=== PATIENT | female | born 1960 | race Caucasian/White ===

== ENCOUNTER 2019-01-29 10:54 | Inpatient (IN) | payer MEDICARE, MEDICAID ==
[~2019-01-29] VITALS: Ht 162.6 cm; Wt 69.5 kg
[2019-01-29] MEDS ORDERED: ondansetron 4mg rapidly disintigrating tab PO ONE (12:30)
[2019-01-29] MEDS ORDERED: HYDROcodone/acetaminophen 10/325mg tab PO ONE (12:30)
[2019-01-29] MEDS ORDERED: CITA20TA27 PO (14:46)
[2019-01-29] MEDS ORDERED: FERR325T32 PO (14:46)
[2019-01-29] MEDS ORDERED: PALI234D IM (14:46)
[2019-01-29] MEDS ORDERED: GUAN2TAB PO (14:46)
[2019-01-29] MEDS ORDERED: FENO145T25 PO (14:46)
[2019-01-29] MEDS ORDERED: LAMO100T89 PO (14:48)
[2019-01-29] MEDS ORDERED: MONT10TA24 PO (14:48)
[2019-01-29] MEDS ORDERED: LORA10TA7 PO (14:48)
[2019-01-29] MEDS ORDERED: QUET200T30 PO (14:48)
[2019-01-29 14:49] LABS: BASOPHILS % (AUTO) 0.2 % (0-1); EOSINOPHILS % (AUTO) 0.2 % (0-6); HEMATOCRIT 40.4 % (35.0-45.0); HEMOGLOBIN 13.3 g/dl (12.0-16.0); LYMPHOCYTES % (AUTO) 7.6 % (21-51); MEAN CORPUSCULAR HEMOGLOBIN 28.7 PG (27.0-31.0); MEAN CORPUSCULAR HGB CONC 32.9 g/dL (33.0-36.5); MEAN CORPUSCULAR VOLUME 87.3 FL (78-98); MEAN PLATELET VOLUME 7.3 FL (7.4-10.4); MONOCYTES # (AUTO) 0.6 X10'3 (0-0.9); MONOCYTES % (AUTO) 4.8 % (2-12); NEUTROPHILS % (AUTO) 87.2 % (42-75); PLATELET COUNT 329 X10'3 (140-440); RED BLOOD COUNT 4.63 X10'6 (4.20-5.60); RED CELL DISTRIBUTION WIDTH 14.1 % (11.5-14.5); WHITE BLOOD COUNT 12.6 X10'3 (4.5-11.0)
[2019-01-29] MEDS ORDERED: DOCU-329 PO (14:50)
[2019-01-29] MEDS ORDERED: MULT-16 PO (14:50)
[2019-01-29] MEDS ORDERED: ACET-2119 PO (14:52)
[2019-01-29] MEDS ORDERED: IBUP-1984 PO (14:52)
[2019-01-29] MEDS ORDERED: KEN0.1O TP (14:54)
[2019-01-29 15:01] LABS: ALANINE AMINOTRANSFERASE 37 U/L (12-78); ALBUMIN 3.5 G/DL (3.4-5.0); ALKALINE PHOSPHATASE 100 IU/L (46-116); ANION GAP 8 (8-16); ASPARTATE AMINO TRANSFERASE 26 U/L (10-37); BILIRUBIN,TOTAL 0.3 MG/DL (0.1-1.0); BLOOD UREA NITROGEN 15 MG/DL (7-18); BUN/CREATININE RATIO 17.9 (6.6-38.0); CALCIUM 9.3 MG/DL (8.5-10.1); CHLORIDE 106 MMOL/L (99-107); CREATININE 0.84 MG/DL (0.40-0.90); GLUCOSE 117 MG/DL (70-104); POTASSIUM 4.4 MMOL/L (3.5-5.1); SODIUM 139 MMOL/L (135-145); TOTAL CARBON DIOXIDE 25.3 MMOL/L (24-32); eGFR 69 ML/MIN
[2019-01-29] MEDS ORDERED: CHOL10002 PO (15:02)
[2019-01-29 15:15] LABS: PARTIAL THROMBOPLASTIN TIME 25 SECONDS (22-32)
[2019-01-29 15:25] LABS: CLARITY,URINE SLIGHTLY CLOUDY (Clear); COLOR,URINE YELLOW (Yellow); GLUCOSE, URINE NEGATIVE (Neg); KETONES,URINE NEGATIVE (Neg); LEUKOCYTE ESTERASE ,URINE NEGATIVE (Neg); NITRITES, URINE NEGATIVE (Neg); OCCULT BLOOD,URINE NEGATIVE (Neg); PROTEIN,URINE NEGATIVE (Neg)
[2019-01-29 15:27] LABS: UA COLLECTION TYPE FOLEY CATH
[2019-01-29 15:30] LABS: MUCUS STRANDS FEW /LPF (Neg); SQUAMOUS EPITHELIAL CELL,UR FEW /LPF (FEW)
[2019-01-29] MEDS ORDERED: diphenhydrAMINE 50 mg/ml inj IV PRN (15:30)
[2019-01-29] MEDS ORDERED: magnesium 2GM in 50ml NS 50 ML IV PRN (15:30)
[2019-01-29] MEDS ORDERED: magnesium hydroxide 30ml (MOM) UD suspension PO PRN (15:30)
[2019-01-29] MEDS: K and/or MAG REPLACEMENT MC SCH (15:30)
[2019-01-29] MEDS ORDERED: magnesium 4gm in 100ml NS 100 ML IV PRN (15:30)
[2019-01-29] MEDS ORDERED: triamcinolone acet 0.1% cream 15gm TP PRN (15:30)
[2019-01-29] MEDS ORDERED: potassium Cl 20 mEq SR tablet PO PRN ×2 (15:30)
[2019-01-29] MEDS ORDERED: magnesium Cl slow-release 64mg tablet PO PRN (15:30)
[2019-01-29] MEDS ORDERED: acetaminophen 325mg tablet PO PRN ×2 (15:30)
[2019-01-29] MEDS ORDERED: mag hydrox/Alum hydrox/simeth 30ml oral suspension PO PRN (15:30)
[2019-01-29] MEDS ORDERED: diphenhydrAMINE 25mg capsule PO PRN (15:30)
[2019-01-29] MEDS ORDERED: HYDROcodone/acetaminophen 5mg/325mg tablet PO PRN (15:30)
[2019-01-29] MEDS ORDERED: ondansetron/PF 4mg/2ml inj IV PRN (15:30)
[2019-01-29] MEDS ORDERED: potassium CL 10mEq/100ml bag 100 ML IV PRN ×2 (15:30)
[2019-01-29] MEDS ORDERED: morphine 2 MG/ML inj. syringe IV PRN ×2 (15:30)
[2019-01-29] MEDS ORDERED: bisacodyl 10mg suppository rectal RC PRN (15:30)
[2019-01-29 15:31] LABS: BACTERIA,URINE FEW /HPF (Neg); HYALINE CASTS 0-3 /LPF (NEGATIVE); RBC,URINE 0-2 /HPF (0-2); WBC,URINE 0-4 /HPF (0-4)
[2019-01-29 15:34] LABS: AMORPHOUS PHOSPHATES 2+
--- NOTE | 2019-01-29 15:52 | NUR ---
Pt caregiver: Janette Burgos
--- NOTE | 2019-01-29 15:57 | NUR ---
RECEIVED REPORT FROM SENIOR CONTRACTS ADMINISTRATOR
[2019-01-29 16:00] VITALS: BP 135/80
[2019-01-29 16:07] LABS: HEMOGLOBIN A1C 5.6 % (4.5-6.2)
[2019-01-29] MEDS: normal saline 1000ml 1,000 ML IV SCH (16:28)
[2019-01-29 18:00] VITALS: BP 135/80
--- NOTE | 2019-01-29 18:09 | NUR ---
GAVE REPORT TO SHAUN CHATMAN
--- NOTE | 2019-01-29 18:10 | NUR ---
Patient in room [facility] 4009. I have received report from Deedee DUNN and had the opportunity to ask questions and assume patient care.
[2019-01-29] MEDS ORDERED: docusate sod 100mg capsule PO SCH (20:00)
[2019-01-29] MEDS: ferrous sulfate 325mg tablet PO SCH (20:06)
[2019-01-29] MEDS: vitamin D (cholecalciferol) 1,000 unit tablet PO SCH (20:08)
[2019-01-29] MEDS: lamoTRIgine 100mg tablet PO SCH (20:08)
[2019-01-29] MEDS: quetiapine 100mg tablet PO SCH (20:08)
[2019-01-29] MEDS: heparin, porcine 5000 units/ml vial SQ SCH (20:09)
[2019-01-29] MEDS: docusate sod 250mg capsule PO SCH (21:42)
[2019-01-29] MEDS: guanFACINE 1 mg tablet PO SCH (21:42)
[2019-01-29 22:00] VITALS: BP 99/57
[2019-01-30] VITALS (23 sets, daily range): BP systolic 89–135; BP diastolic 54–81
[2019-01-30] MEDS: normal saline 1000ml 1,000 ML IV SCH ×3 (02:34→21:28)
[2019-01-30] MEDS: HYDROcodone/acetaminophen 10/325mg tab PO PRN ×3 (02:45→22:13)
[2019-01-30 05:46] LABS: BASOPHILS % (AUTO) 0.4 % (0-1); EOSINOPHILS # (AUTO) 0.3 X10'3 (0-0.9); EOSINOPHILS % (AUTO) 5.3 % (0-6); HEMATOCRIT 35.8 % (35.0-45.0); HEMOGLOBIN 11.9 g/dl (12.0-16.0); LYMPHOCYTES # (AUTO) 1.7 X10'3 (1.1-4.8); LYMPHOCYTES % (AUTO) 30.3 % (21-51); MEAN CORPUSCULAR HEMOGLOBIN 29.2 PG (27.0-31.0); MEAN CORPUSCULAR HGB CONC 33.2 g/dL (33.0-36.5); MEAN CORPUSCULAR VOLUME 87.9 FL (78-98); MEAN PLATELET VOLUME 7.3 FL (7.4-10.4); MONOCYTES # (AUTO) 0.4 X10'3 (0-0.9); MONOCYTES % (AUTO) 7.8 % (2-12); NEUTROPHILS # (AUTO) 3.1 X10'3 (1.8-7.7); NEUTROPHILS % (AUTO) 56.2 % (42-75); PLATELET COUNT 291 X10'3 (140-440); RED BLOOD COUNT 4.07 X10'6 (4.20-5.60); RED CELL DISTRIBUTION WIDTH 13.9 % (11.5-14.5); WHITE BLOOD COUNT 5.5 X10'3 (4.5-11.0)
[2019-01-30 06:05] LABS: ALANINE AMINOTRANSFERASE 31 U/L (12-78); ALBUMIN 2.7 G/DL (3.4-5.0); ALBUMIN/GLOBULIN RATIO 0.9 (1.1-1.5); ALKALINE PHOSPHATASE 86 IU/L (46-116); ANION GAP 10 (8-16); ASPARTATE AMINO TRANSFERASE 21 U/L (10-37); BILIRUBIN,TOTAL 0.4 MG/DL (0.1-1.0); BLOOD UREA NITROGEN 11 MG/DL (7-18); BUN/CREATININE RATIO 14.7 (6.6-38.0); CALCIUM 8.6 MG/DL (8.5-10.1); CHLORIDE 111 MMOL/L (99-107); CHOL/HDL RATIO 4.1 (0.00-4.99); CHOLESTEROL 163 MG/DL (0-200); CREATININE 0.75 MG/DL (0.40-0.90); GLUCOSE 95 MG/DL (70-104); HDL CHOLESTEROL 40 MG/DL (35-60); MAGNESIUM 1.7 MG/DL (1.5-2.4); POTASSIUM 4.1 MMOL/L (3.5-5.1); SODIUM 144 MMOL/L (135-145); TOTAL CARBON DIOXIDE 23.4 MMOL/L (24-32); TOTAL PROTEIN 5.8 G/DL (6.4-8.2); TRIGLYCERIDES 103 MG/DL (20-135); eGFR 79 ML/MIN
[2019-01-30 06:17] LABS: LDL CHOLESTEROL 109 MG/DL (50-100)
--- NOTE | 2019-01-30 06:25 | NUR ---
Problems reprioritized. Patient report given, questions answered & plan of care reviewed with Caity DUNN.
[2019-01-30] MEDS: heparin, porcine 5000 units/ml vial SQ SCH ×2 (06:37→21:32)
[2019-01-30] MEDS: fenofibrate 145mg tablet PO SCH (06:38)
[2019-01-30] MEDS: multivitamins, therapeutics tablet PO SCH (06:38)
[2019-01-30] MEDS: montelukast 10mg tablet PO SCH (06:38)
[2019-01-30] MEDS: ferrous sulfate 325mg tablet PO SCH ×2 (06:39→21:32)
[2019-01-30] MEDS: docusate sod 250mg capsule PO SCH ×2 (06:39→21:31)
[2019-01-30] MEDS: loratadine 10mg tablet PO SCH (06:39)
[2019-01-30] MEDS: lamoTRIgine 100mg tablet PO SCH ×2 (06:39→21:32)
[2019-01-30] MEDS: citalopram 20mg tablet PO SCH (06:39)
[2019-01-30] MEDS: K and/or MAG REPLACEMENT MC SCH (06:40)
[2019-01-30] MEDS ORDERED: BUPIVAcaine/PF 2.5 mg/ml (0.25%) 30ml vial ONE (10:12)
[2019-01-30] MEDS ORDERED: ceFAZolin 1000mg inj ONE (10:12)
[2019-01-30] MEDS ORDERED: ringers solution, lacted 1,000 ML IV SCH (10:28)
[2019-01-30] MEDS ORDERED: meperidine/PF 25mg/ml syringe IV PRN ×3 (10:30)
[2019-01-30] MEDS ORDERED: morphine 4 MG/ML inj SYRINge IV PRN ×2 (10:30)
[2019-01-30] MEDS ORDERED: proCHLORperazine 10 MG/2 ml inj IV PRN (10:30)
[2019-01-30] MEDS ORDERED: ondansetron/PF 4mg/2ml inj IV PRN (10:30)
[2019-01-30] MEDS ORDERED: clindamycin 600mg/D5W 50ml 50 ML IV ONE (11:00)
[2019-01-30] MEDS ORDERED: ePHEDrine 50MG/ML INJ. ONE (11:22)
[2019-01-30] MEDS ORDERED: fentaNYL/PF 50MCG/1 ML 2ML syringe ONE (11:32)
[2019-01-30] MEDS ORDERED: MIDAZolam 5mg/5ml vial ONE (11:32)
--- NOTE | 2019-01-30 12:22 | NUR ---
Received from OR via BED, accompanied by Anesthesiologist DR MARQUEZ and report given by Anesthesiologist. PT DROWSY, LEFT HIP W/SHEELA DRSG COVERING 4X4 CDI, PT W/SAB, UNABLE TO MOVE BILAT LE'S, HOWEVER, STATES HAS FULL SENSATION TO TOUCH, NEGRON CATHETER TO GRAVITY DRAINAGE. Addendum: 01/30/19 at 1255 by Irlanda Pulido RN Amended: Links added.
--- NOTE | 2019-01-30 13:52 | NUR ---
Report called to receiving nurse. Transferred IN STABLE CONDTISION via BED, NO Belongings, RECEIVING RN AT BEDSIDE TO RECEIVE PT, BLL, CALL LIGHT GIVEN, SIDE RAILS UP X 2. Special Issues communicated to receiving nurse. YES. Addendum: 01/30/19 at 1405 by Irlanda Pulido RN Amended: Links added.
[2019-01-30] MEDS ORDERED: clindamycin 600mg/D5W 50ml 50 ML IV SCH (16:00)
[2019-01-30] MEDS: clindamycin 600mg/D5W 50ml 50 ML IV SCH (17:27)
[2019-01-30] MEDS: guanFACINE 1 mg tablet PO SCH (21:32)
[2019-01-30] MEDS: quetiapine 100mg tablet PO SCH (21:32)
[2019-01-30] MEDS: vitamin D (cholecalciferol) 1,000 unit tablet PO SCH (21:33)
[2019-01-31] MEDS: clindamycin 600mg/D5W 50ml 50 ML IV SCH ×2 (00:10→07:27)
[2019-01-31 04:21] VITALS: BP 99/51
[2019-01-31] MEDS: HYDROcodone/acetaminophen 10/325mg tab PO PRN ×4 (04:52→20:45)
[2019-01-31] MEDS: normal saline 1000ml 1,000 ML IV SCH (05:57)
[2019-01-31 06:00] VITALS: BP 103/61
--- NOTE | 2019-01-31 06:15 | NUR ---
Patient in room [facility]TH[facility] 4009. I have received report from ROM DUNN and had the opportunity to ask questions and assume patient care.
[2019-01-31 06:52] LABS: BASOPHILS % (AUTO) 0.3 % (0-1); EOSINOPHILS # (AUTO) 0.4 X10'3 (0-0.9); EOSINOPHILS % (AUTO) 6.5 % (0-6); HEMATOCRIT 33.6 % (35.0-45.0); HEMOGLOBIN 11.3 g/dl (12.0-16.0); LYMPHOCYTES # (AUTO) 1.2 X10'3 (1.1-4.8); LYMPHOCYTES % (AUTO) 19.9 % (21-51); MEAN CORPUSCULAR HEMOGLOBIN 29.6 PG (27.0-31.0); MEAN CORPUSCULAR HGB CONC 33.6 g/dL (33.0-36.5); MEAN CORPUSCULAR VOLUME 88.1 FL (78-98); MEAN PLATELET VOLUME 7.5 FL (7.4-10.4); MONOCYTES # (AUTO) 0.5 X10'3 (0-0.9); MONOCYTES % (AUTO) 7.7 % (2-12); NEUTROPHILS # (AUTO) 4.1 X10'3 (1.8-7.7); NEUTROPHILS % (AUTO) 65.6 % (42-75); PLATELET COUNT 276 X10'3 (140-440); RED BLOOD COUNT 3.81 X10'6 (4.20-5.60); RED CELL DISTRIBUTION WIDTH 14.3 % (11.5-14.5); WHITE BLOOD COUNT 6.2 X10'3 (4.5-11.0)
[2019-01-31 07:13] LABS: ALANINE AMINOTRANSFERASE 36 U/L (12-78); ALBUMIN 2.4 G/DL (3.4-5.0); ALBUMIN/GLOBULIN RATIO 0.8 (1.1-1.5); ALKALINE PHOSPHATASE 100 IU/L (46-116); ANION GAP 11 (8-16); ASPARTATE AMINO TRANSFERASE 32 U/L (10-37); BILIRUBIN,TOTAL 0.4 MG/DL (0.1-1.0); BLOOD UREA NITROGEN 7 MG/DL (7-18); BUN/CREATININE RATIO 10.8 (6.6-38.0); CALCIUM 8.4 MG/DL (8.5-10.1); CHLORIDE 110 MMOL/L (99-107); CREATININE 0.65 MG/DL (0.40-0.90); GLUCOSE 106 MG/DL (70-104); MAGNESIUM 1.6 MG/DL (1.5-2.4); PHOSPHORUS 2.7 MG/DL (2.3-4.5); POTASSIUM 3.8 MMOL/L (3.5-5.1); SODIUM 143 MMOL/L (135-145); TOTAL CARBON DIOXIDE 22.4 MMOL/L (24-32); TOTAL PROTEIN 5.6 G/DL (6.4-8.2); eGFR > 90 ML/MIN
[2019-01-31] MEDS: K and/or MAG REPLACEMENT MC SCH (07:21)
[2019-01-31] MEDS: multivitamins, therapeutics tablet PO SCH (07:25)
[2019-01-31] MEDS: heparin, porcine 5000 units/ml vial SQ SCH ×2 (07:25→20:46)
[2019-01-31] MEDS: citalopram 20mg tablet PO SCH (07:25)
[2019-01-31] MEDS: docusate sod 250mg capsule PO SCH ×2 (07:25→20:00)
[2019-01-31] MEDS: lamoTRIgine 100mg tablet PO SCH ×2 (07:25→20:41)
[2019-01-31] MEDS: montelukast 10mg tablet PO SCH (07:25)
[2019-01-31] MEDS: loratadine 10mg tablet PO SCH (07:25)
[2019-01-31] MEDS: ferrous sulfate 325mg tablet PO SCH ×2 (07:25→20:41)
[2019-01-31] MEDS: fenofibrate 145mg tablet PO SCH (07:26)
--- NOTE | 2019-01-31 09:34 | NUR ---
WHEN GETTING PATIENT BACK TO BED NOTICED THAT THE NEGRON CATHETER WAS NOT IN PLACE. CATHETER TIP WAS INTACT.
[2019-01-31 10:00] VITALS: BP 109/61
[2019-01-31 14:00] VITALS: BP 122/67
--- NOTE | 2019-01-31 15:38 | NUR ---
PAGER ID: [phone] MESSAGE: MEGAN [phone] RE: SUSANLAURI [id number] PT GETS INVEGA [id number] DUE ON MONDAY BUT HAS TO GET IN CORNING. CAN WE GIVE IT HERE TOMORROW?
[2019-01-31 18:00] VITALS: BP 120/60
--- NOTE | 2019-01-31 18:25 | NUR ---
Problems reprioritized. Patient report given, questions answered & plan of care reviewed with JIHAN DUNN.
--- NOTE | 2019-01-31 19:00 | NUR ---
Patient in room [facility]TH[facility] 4009. I have received report from Shade DUNN and had the opportunity to ask questions and assume patient care.
[2019-01-31] MEDS: quetiapine 100mg tablet PO SCH (20:42)
[2019-01-31] MEDS: guanFACINE 1 mg tablet PO SCH (20:43)
[2019-01-31] MEDS: vitamin D (cholecalciferol) 1,000 unit tablet PO SCH (20:43)
[2019-01-31 22:44] VITALS: BP 128/79
[2019-02-01] MEDS: HYDROcodone/acetaminophen 10/325mg tab PO PRN ×5 (03:27→20:15)
[2019-02-01 06:00] VITALS: BP 123/75
--- NOTE | 2019-02-01 06:20 | NUR ---
Patient in room [facility]TH[facility] 4009. I have received report fromJIHAN DUNN and had the opportunity to ask questions and assume patient care.
[2019-02-01 07:02] LABS: BASOPHILS % (AUTO) 0.5 % (0-1); EOSINOPHILS # (AUTO) 0.4 X10'3 (0-0.9); EOSINOPHILS % (AUTO) 4.9 % (0-6); HEMATOCRIT 36.8 % (35.0-45.0); HEMOGLOBIN 12.3 g/dl (12.0-16.0); LYMPHOCYTES # (AUTO) 1.8 X10'3 (1.1-4.8); LYMPHOCYTES % (AUTO) 24.1 % (21-51); MEAN CORPUSCULAR HEMOGLOBIN 29.2 PG (27.0-31.0); MEAN CORPUSCULAR HGB CONC 33.3 g/dL (33.0-36.5); MEAN CORPUSCULAR VOLUME 87.6 FL (78-98); MEAN PLATELET VOLUME 7.6 FL (7.4-10.4); MONOCYTES # (AUTO) 0.6 X10'3 (0-0.9); MONOCYTES % (AUTO) 8.2 % (2-12); NEUTROPHILS # (AUTO) 4.6 X10'3 (1.8-7.7); NEUTROPHILS % (AUTO) 62.3 % (42-75); PLATELET COUNT 277 X10'3 (140-440); RED CELL DISTRIBUTION WIDTH 13.9 % (11.5-14.5); WHITE BLOOD COUNT 7.4 X10'3 (4.5-11.0)
[2019-02-01 07:13] LABS: ALANINE AMINOTRANSFERASE 39 U/L (12-78); ALBUMIN 2.4 G/DL (3.4-5.0); ALBUMIN/GLOBULIN RATIO 0.6 (1.1-1.5); ALKALINE PHOSPHATASE 114 IU/L (46-116); ANION GAP 9 (8-16); ASPARTATE AMINO TRANSFERASE 30 U/L (10-37); BILIRUBIN,TOTAL 0.2 MG/DL (0.1-1.0); BLOOD UREA NITROGEN 9 MG/DL (7-18); BUN/CREATININE RATIO 13.8 (6.6-38.0); CALCIUM 8.9 MG/DL (8.5-10.1); CHLORIDE 110 MMOL/L (99-107); CREATININE 0.65 MG/DL (0.40-0.90); GLUCOSE 106 MG/DL (70-104); MAGNESIUM 1.9 MG/DL (1.5-2.4); PHOSPHORUS 2.3 MG/DL (2.3-4.5); POTASSIUM 4.1 MMOL/L (3.5-5.1); SODIUM 141 MMOL/L (135-145); TOTAL CARBON DIOXIDE 22.3 MMOL/L (24-32); TOTAL PROTEIN 6.1 G/DL (6.4-8.2); eGFR > 90 ML/MIN
[2019-02-01] MEDS: K and/or MAG REPLACEMENT MC SCH (08:00)
[2019-02-01] MEDS: montelukast 10mg tablet PO SCH (08:02)
[2019-02-01] MEDS: citalopram 20mg tablet PO SCH (08:02)
[2019-02-01] MEDS: docusate sod 250mg capsule PO SCH ×2 (08:02→20:12)
[2019-02-01] MEDS: fenofibrate 145mg tablet PO SCH (08:02)
[2019-02-01] MEDS: multivitamins, therapeutics tablet PO SCH (08:02)
[2019-02-01] MEDS: loratadine 10mg tablet PO SCH (08:02)
[2019-02-01] MEDS: lamoTRIgine 100mg tablet PO SCH ×2 (08:02→20:13)
[2019-02-01] MEDS: ferrous sulfate 325mg tablet PO SCH ×2 (08:02→20:12)
[2019-02-01] MEDS: heparin, porcine 5000 units/ml vial SQ SCH ×2 (08:03→20:13)
[2019-02-01] MEDS ORDERED: paliperidone palmitate inj 234 MG/1.5 ML SYRINGE IM SCH (09:00)
[2019-02-01 10:00] VITALS: BP 102/67
[2019-02-01 18:00] VITALS: BP 115/70
--- NOTE | 2019-02-01 18:20 | NUR ---
Problems reprioritized. Patient report given, questions answered & plan of care reviewed with JIHAN DUNN.
--- NOTE | 2019-02-01 19:00 | NUR ---
Patient in room [facility]TH[facility] 4009. I have received report from Fannie DUNN and had the opportunity to ask questions and assume patient care.
[2019-02-01] MEDS: guanFACINE 1 mg tablet PO SCH (20:14)
[2019-02-01] MEDS: quetiapine 100mg tablet PO SCH (20:14)
[2019-02-01] MEDS: vitamin D (cholecalciferol) 1,000 unit tablet PO SCH (20:15)
[2019-02-01 22:00] VITALS: BP 104/61
[2019-02-02] MEDS: HYDROcodone/acetaminophen 10/325mg tab PO PRN ×2 (05:09→09:43)
[2019-02-02 06:00] VITALS: BP 131/73
--- NOTE | 2019-02-02 06:20 | NUR ---
Patient in room [facility]TH[facility] 4009. I have received report from JIHAN DUNN and had the opportunity to ask questions and assume patient care.
[2019-02-02 07:01] LABS: BASOPHILS % (AUTO) 0.3 % (0-1); EOSINOPHILS # (AUTO) 0.3 X10'3 (0-0.9); EOSINOPHILS % (AUTO) 4.1 % (0-6); HEMATOCRIT 35.6 % (35.0-45.0); LYMPHOCYTES # (AUTO) 1.4 X10'3 (1.1-4.8); LYMPHOCYTES % (AUTO) 16.5 % (21-51); MEAN CORPUSCULAR HEMOGLOBIN 29.7 PG (27.0-31.0); MEAN CORPUSCULAR HGB CONC 33.9 g/dL (33.0-36.5); MEAN CORPUSCULAR VOLUME 87.8 FL (78-98); MEAN PLATELET VOLUME 7.4 FL (7.4-10.4); MONOCYTES # (AUTO) 0.7 X10'3 (0-0.9); NEUTROPHILS % (AUTO) 71.1 % (42-75); PLATELET COUNT 302 X10'3 (140-440); RED BLOOD COUNT 4.05 X10'6 (4.20-5.60); RED CELL DISTRIBUTION WIDTH 14.2 % (11.5-14.5); WHITE BLOOD COUNT 8.4 X10'3 (4.5-11.0)
[2019-02-02 07:09] LABS: ALANINE AMINOTRANSFERASE 55 U/L (12-78); ALBUMIN 2.5 G/DL (3.4-5.0); ALBUMIN/GLOBULIN RATIO 0.7 (1.1-1.5); ALKALINE PHOSPHATASE 152 IU/L (46-116); ANION GAP 9 (8-16); ASPARTATE AMINO TRANSFERASE 59 U/L (10-37); BILIRUBIN,TOTAL 0.4 MG/DL (0.1-1.0); BLOOD UREA NITROGEN 11 MG/DL (7-18); BUN/CREATININE RATIO 16.9 (6.6-38.0); CALCIUM 8.9 MG/DL (8.5-10.1); CHLORIDE 109 MMOL/L (99-107); CREATININE 0.65 MG/DL (0.40-0.90); GLUCOSE 112 MG/DL (70-104); MAGNESIUM 1.9 MG/DL (1.5-2.4); PHOSPHORUS 2.6 MG/DL (2.3-4.5); SODIUM 142 MMOL/L (135-145); TOTAL CARBON DIOXIDE 23.9 MMOL/L (24-32); TOTAL PROTEIN 6.2 G/DL (6.4-8.2); eGFR > 90 ML/MIN
[2019-02-02] MEDS: K and/or MAG REPLACEMENT MC SCH (07:49)
[2019-02-02] MEDS: docusate sod 250mg capsule PO SCH (07:51)
[2019-02-02] MEDS: loratadine 10mg tablet PO SCH (07:51)
[2019-02-02] MEDS: multivitamins, therapeutics tablet PO SCH (07:51)
[2019-02-02] MEDS: montelukast 10mg tablet PO SCH (07:51)
[2019-02-02] MEDS: citalopram 20mg tablet PO SCH (07:51)
[2019-02-02] MEDS: fenofibrate 145mg tablet PO SCH (07:51)
[2019-02-02] MEDS: heparin, porcine 5000 units/ml vial SQ SCH (07:51)
[2019-02-02] MEDS: lamoTRIgine 100mg tablet PO SCH (07:51)
[2019-02-02] MEDS: ferrous sulfate 325mg tablet PO SCH (07:51)
[2019-02-02 10:00] VITALS: BP 105/65
[2019-02-02] MEDS ORDERED: ASPI-1264 PO (10:45)
--- NOTE | 2019-02-02 13:40 | NUR ---
PATIENT DISCHARGED WITH FIELD SERVICE TECHNICIAN. ALL BELONGINGS IN POSSESSION. TRIPLICATE WITH PATIENT. ATTEMPTED CALL IN [facility] PER CAREGIVER'S REQUEST AND PHARMACY WAS CLOSED. CAREGIVER STATED ALL MEDICATIONS NEED TO GO THROUGH THE PHARMACY PER THEIR FACILITIES LICENSING REQUIREMENTS, EVEN OTC MEDS. THE [facility] WILL NEED TO BE CALLED IN MONDAY WHEN THE PHARMACY OPENS. PATIENT AND CAREGIVER VERBALIZE UNDERSTANDING OF DC INSTRUCTIONS.
[2019-02-06] MEDS ORDERED: paliperidone palmitate inj 234 MG/1.5 ML SYRINGE IM SCH (09:00)
== END 2019-02-02 13:30 | disposition home health service (06) | DRG 482 ==
LOC: ER 10:54 → ORTHO 4S 16:02
PROVIDERS: ADMIT Family Medicine; ATTEND Family Medicine
PROC: BQ111ZZ Fluoroscopy of Left Hip using Low Osmolar Contrast (ICD-10-PCS; 2019-01-30)
PROC: 0QS734Z Reposition Left Upper Femur with Internal Fixation Device, Percutaneous Approach (ICD-10-PCS; principal; 2019-01-30 11:22)
DX: S72.002A Fracture of unspecified part of neck of left femur, initial encounter for closed fracture (principal); G80.9 Cerebral palsy, unspecified; E78.1 Pure hyperglyceridemia; W01.0XXA Fall on same level from slipping, tripping and stumbling without subsequent striking against object, initial encounter; D64.9 Anemia, unspecified; F20.9 Schizophrenia, unspecified; G40.909 Epilepsy, unspecified, not intractable, without status epilepticus; Y93.89 Activity, other specified; Y99.8 Other external cause status; Z88.5 Allergy status to narcotic agent; Z88.0 Allergy status to penicillin; Y92.098 Other place in other non-institutional residence as the place of occurrence of the external cause; Z79.899 Other long term (current) drug therapy
CPT/HCPCS: 36415; 71045; 72192; 73502; 76000; 80053; 80061; 81001; 83036; 83735; 84100; 85025; 85610; 85730; 86885; 86900; 86901; 87081; 93005; 97110; 97116; 97162; 97530; 99285; A6258; A6449; A6455; C1713; G0378; J0690; J1644; J2250; J2270; J2405; J3010; J3370; J3490; J7030; J7120